=== PATIENT | male | born 1945 | race Caucasian/White ===

== ENCOUNTER 2018-01-12 10:18 | Emergency (ER) | payer OTHER, MEDICARE, BC ==
--- NOTE | 2018-01-12 10:24 | EDM.PDOC ---
ED HPI GENERAL MEDICAL PROBLEM - General Chief Complaint: Laceration Stated Complaint: CUT TO TOP OF HEAD Time Seen by Provider: 01/12/18 10:23 Source of Information: Reports: Patient, RN, RN Notes Reviewed History Limitations: Reports: No Limitations - History of Present Illness INITIAL COMMENTS - FREE TEXT/NARRATIVE: Pt c/o cut to top of head. Denies LOC or any other injury. Cut scalp in metal strip of semi truck door. Last tetanus vaccine >10yrs ago. Onset: Today Duration: Constant Location: Reports: Head Severity: Mild Improves with: Reports: None Worsens with: Reports: None Associated Symptoms: Reports: No Other Symptoms - Related Data Allergies Allergy/AdvReac Type Severity Reaction Status Date / Time No Known Allergies Allergy Verified 01/12/18 10:23 Home Meds: Home Meds . [Unable to Verify Home Med List] 01/12/18 [History] Past Medical History - Past Health History Medical/Surgical History: Denies Medical/Surgical History Social & Family History - Family History Family Medical History: Noncontributory - Living Situation & Occupation Occupation: Employed ED ROS GENERAL - Review of Systems Review Of Systems: ROS reveals no pertinent complaints other than HPI. ED EXAM, SKIN/RASH Exam: See Below Exam Limited By: No Limitations General Appearance: Alert, WD/WN, No Apparent Distress Eye Exam: Bilateral Eye: Normal Inspection Ears: Normal External Exam Nose: Normal Inspection Throat/Mouth: Normal Inspection Head: Normocephalic, Other (3cm scalp laceration to depth of subcutaneous tissue , no FB, no active bleeding) Neck: Normal Inspection Respiratory/Chest: No Respiratory Distress Neurological: Alert, Oriented, CN II-XII Intact, Normal Cognition, Normal Gait, No Motor/Sensory Deficits ED SKIN PROCEDURES - Laceration/Wound Repair Left Lateral Head Lac/Wound length In cm: 3 Appearance: Subcutaneous, Linear, Clean Anesthetic Type: Local Local Anesthesia - Lidocaine (Xylocaine): 1% Plain Local Anesthetic Volume: 5cc Skin Prep: Chlorhexidine (Hibiciens), Saline Exploration/Debridement/Repair: Wound Explored, In a Bloodless Field, Explored to Base, Minimal Debridement, Minimally Undermined Closed with: [place] # of Sutures: 6 Suture Type: Interrupted Drain Placement: No Sterile Dressing Applied: None Tetanus Status Addressed: Yes Complications: No Course - Vital Signs Last Recorded V/S: Last Vital Signs Temp 37.1 C 01/12/18 10:23 Pulse 88 01/12/18 10:23 Resp 18 01/12/18 10:23 BP 148/77 H 01/12/18 10:23 Pulse Ox 99 01/12/18 10:23 - Orders/Labs/Meds Orders: Active Orders 24 hr Category Date Time Status Vaccines to be Administered [RC] PER UNIT ROUTINE Care 01/12/18 10:31 Active Meds: Medications Discontinued Medications Generic Name Dose Route Start Last Admin Trade Name Gene PRN Reason Stop Dose Admin Diphtheria/Tetanus/Acell Pertussis 0.5 ml 01/12/18 10:31 01/12/18 10:36 Adacel IM 01/12/18 10:32 0.5 ml .ONCE ONE Administration Departure - Departure Time of Disposition: 10:48 Disposition: Home, Self-Care 01 Condition: Good Clinical Impression: Scalp laceration Qualifiers: Encounter type: initial encounter Qualified Code(s): S01.01XA - Laceration without foreign body of scalp, initial encounter - Discharge Information Instructions: Stitches, [place], or Adhesive Wound Closure, [id number] Forms: ED Department Discharge Additional Instructions: Follow up in clinic in 7 to 10 days for staple removal. - My Orders Last 24 Hours: My Active Orders 01/12/18 10:31 Vaccines to be Administered [RC] PER UNIT ROUTINE - Assessment/Plan Last 24 Hours: My Active Orders 01/12/18 10:31 Vaccines to be Administered [RC] PER UNIT ROUTINE
[2018-01-12] MEDS ORDERED: Diphtheria,Pertussis(Acell),Tetanus Vaccine 0.5 ML SDV IM ONE (10:31)
== END 2018-01-12 10:53 | disposition home or self-care (01) ==
LOC: DL.ED 10:18
DX: S01.01XA Laceration without foreign body of scalp, initial encounter (principal); Z23 Encounter for immunization; W26.8XXA Contact with other sharp object(s), not elsewhere classified, initial encounter
CPT/HCPCS: 12001; 12002; 90471; 90715; 99283

== ENCOUNTER 2024-02-09 10:27 | Emergency (ER) | payer MEDICARE, BC | END 2024-02-09 11:13 | disposition home or self-care (01) | LOC: DL.ED 10:27 | DX: J18.9 Pneumonia, unspecified organism (principal); I10 Essential (primary) hypertension | CPT/HCPCS: 99283 ==